=== PATIENT | female | born 1995 | race Caucasian/White ===

== ENCOUNTER 2016-09-05 09:38 | Emergency (ER) | payer BC ==
[2016-09-05] MEDS ORDERED: NS 1,000 ML IV ONE (09:46)
[2016-09-05] MEDS ORDERED: predniSONE 20 MG TAB PO ONE (09:46)
[2016-09-05] MEDS ORDERED: FAMOTIDINE 20 MG/2 ML SDV IVP ONE (09:48)
--- NOTE | 2016-09-05 10:52 | EDPHY ---
H & P Stated Complaint: ? allergic reaction to liquid gels HPI/ROS: Chief complaint: Allergic reaction History of present illness: This is a 20-year-old female who presents to the emergency department concerned she is having allergic reaction. Patient reports she has a history of allergies to medications contained liquid gel caps. She took a liquid gel cap this morning and since then feels like she is developing an allergic reaction. She reports swelling of her face, swelling of her throat and itching. She drove here immediately. She does have epinephrine pens but did not use them. She denies other associated signs or symptoms. Review of systems: A 10 point review of systems was obtained and other than described above is negative - Personal History LMP (Females 10-55): 8-14 Days Ago Current Tetanus/Diphtheria Vaccine: Yes - Medical/Surgical History Hx Asthma: No Hx Chronic Respiratory Disease: No Hx Diabetes: No Hx Cardiac Disease: No Hx Renal Disease: No Hx Cirrhosis: No Hx Alcoholism: No Hx HIV/AIDS: No Hx Splenectomy or Spleen Trauma: No Other PMH: denies - Social History Smoking Status: Never smoked - Physical Exam Exam: General Appearance: Alert, nontoxic. Eyes: Pupils equal and round no injection. ENT: No angioedema. Patient's talk without difficulty. There is no hoarseness , no drooling, no trismus, no stridor. Respiratory: Chest is non tender, lungs are clear to auscultation. Cardiac: regular rate and rhythm Gastrointestinal: Abdomen is soft and non tender, no masses, bowel sounds normal. Musculoskeletal: Neck is supple and non tender. Extremities have full range of motion and are non tender. Skin: Mild edema around the eyes. Constitutional: Initial Vital Signs Temperature (C) 36.7 C 09/05/16 09:39 Heart Rate 94 09/05/16 09:39 Respiratory Rate 16 09/05/16 09:39 Blood Pressure 127/87 H 09/05/16 09:39 O2 Sat (%) 96 09/05/16 09:39 O2 Delivery Mode Room Air Allergies/Adverse Reactions: grapefruit Allergy (Verified 09/05/16 10:00) ibuprofen [From Advil Cold and Sinus] Allergy (Verified 09/05/16 10:00) levofloxacin [From Levaquin] Allergy (Verified 09/05/16 09:39) pseudoephedrine HCl [From Advil Cold and Sinus] Allergy (Verified 09/05/16 10:00 ) "LIQUID GELS" Allergy (Uncoded 09/05/16 10:00) COCONUT Allergy (Uncoded 09/05/16 10:00) Home Medications: Medication Instructions Recorded Junel 1 mg-20 Mcg Tablet 09/05/16 predniSONE 40 mg PO DAILY 4 Days 09/05/16 Medical Decision Making ED Course/Re-evaluation: Patient seen under the supervision of my secondary supervising physician Dr. Steve Aviles. Patient presents to the emergency department concerned she is having an allergic reaction. She is nontoxic. Afebrile and vital signs are stable. She is started on prednisone as well as Benadryl and Pepcid. She is IV hydrated. She is observed in the emergency department for over an hour. She reports resolution of symptoms. She would like to be discharged home. She is discharged home and home care is discussed. She does have epinephrine pens at home. She is asked to follow up with a primary care doctor for recheck. Strict return precautions are given. Patient voiced understanding and agreement with plan. Differential Diagnosis: Included but not limited to allergic reaction, anaphylaxis, contact dermatitis - Data Points Medications Given: Discontinued Medications Diphenhydramine HCl (Benadryl Injection) 25 mg IVP EDNOW ONE Stop: 09/05/16 09:47 Last Admin: 09/05/16 09:55 Dose: 25 mg Famotidine (Pepcid) 20 mg IVP EDNOW ONE Stop: 09/05/16 09:49 Last Admin: 09/05/16 09:55 Dose: 20 mg Sodium Chloride (Ns) 1,000 mls @ 0 mls/hr IV ONCE ONE PRN Reason: Wide Open Stop: 09/05/16 09:47 Last Admin: 09/05/16 09:55 Dose: 1,000 mls Prednisone (Prednisone) 60 mg PO EDNOW ONE Stop: 09/05/16 09:47 Last Admin: 09/05/16 09:55 Dose: 60 mg Departure - Departure Disposition: Home, Routine, Self-Care Clinical Impression: Allergic reaction Qualifiers: Encounter type: initial encounter Qualifier Code: (T78.40XA) Allergy, unspecified, initial encounter Condition: Good Instructions: Anaphylaxis (ED) Additional Instructions: Follow-up with a primary care doctor [facility] for rec[facility] Take prednisone as prescribed until finished Use [id number] Benadryl, 25 mg every 6 hours for the next 2-3 days Use [id number] Pepcid, 20 mg twice a day for the next 2-3 days If symptoms worsen or new symptoms developed use your epinephrine pen and return immediately to the emergency department, you can call 911 if needed Referrals: NONE *PRIMARY CARE P,. [Primary Care Provider] - As per Instructions Rona Quiñonez MD [Medical Doctor] - As per Instructions Prescriptions: predniSONE 40 mg PO DAILY 4 Days
[2016-09-05 10:59] VITALS: BP 128/78; PULSE 74; RESP 14; TEMP 98.4; O2SAT 94
== END 2016-09-05 10:58 | disposition home or self-care (01) ==
DX: R22.0 Localized swelling, mass and lump, head (principal)
CPT/HCPCS: 96374; J1200

== ENCOUNTER 2017-04-30 13:56 | Emergency (ER) | payer BC ==
[2017-04-30 14:03] VITALS: BP 114/68; PULSE 72; RESP 18; TEMP 98.8; O2SAT 98
--- NOTE | 2017-04-30 14:46 | EDPHY ---
H & P Time Seen by Provider: 04/30/17 14:18 HPI/ROS: CHIEF COMPLAINT: Right thumb injury HISTORY OF PRESENT ILLNESS: 21-year-old female presents to the emergency department with injury to the right thumb. 2 days ago the patient was using a slicer and was slicing eggplant and accidentally cut her thumb. She presents now to the emergency department 2 days later for wound evaluation. Her tetanus shot is current. She is right-hand dominant. ROS: Denies numbness or tingling in her fingers, retained foreign body. Past Medical/Surgical History: Negative Social History: [employer] student Smoking Status: Never smoked Physical Exam: On examination the patient has a healing flap laceration to the distal, palmar aspect of her right thumb. It extends from about PIP joint up to the distal aspect of her thumb. She has full range of motion of her fingers. No palpable bony tenderness. No active bleeding noted. No signs of infection. Tender to palpate. The other fingers do not appear injured. Constitutional: Initial Vital Signs Temperature (C) 37.1 C 04/30/17 14:01 Heart Rate 72 04/30/17 14:01 Respiratory Rate 18 04/30/17 14:01 Blood Pressure 114/68 04/30/17 14:01 O2 Sat (%) 98 04/30/17 14:01 O2 Delivery Mode Room Air Allergies/Adverse Reactions: grapefruit Allergy (Verified 04/30/17 14:00) ibuprofen [From Advil Cold and Sinus] Allergy (Verified 04/30/17 14:00) levofloxacin [From Levaquin] Allergy (Verified 04/30/17 14:00) pseudoephedrine HCl [From Advil Cold and Sinus] Allergy (Verified 04/30/17 14:00 ) "LIQUID GELS" Allergy (Uncoded 09/05/16 10:00) COCONUT Allergy (Uncoded 09/05/16 10:00) Home Medications: Medication Instructions Recorded Junel 1 mg-20 Mcg Tablet 09/05/16 MDM/Departure - [facility] ED Course/Re-evaluation: Patient's wound is 48 hours old. Is already healing. There is no signs of infection. I explained why sutures are not indicated now. Patient was given wound care precautions. - Depart Disposition: Home, Routine, Self-Care Clinical Impression: Right thumb healing laceration Condition: Good Instructions: Acute Wounds (ED) Additional Instructions: Return if you notice any signs or symptoms of infection such as redness, swelling, increased pain, fever, purulent drainage. Referrals: ROLO PATEL [Other] - As per Instructions
== END 2017-04-30 14:54 | disposition home or self-care (01) ==
DX: S61.011A Laceration without foreign body of right thumb without damage to nail, initial encounter (principal); W27.8XXA Contact with other nonpowered hand tool, initial encounter

== ENCOUNTER 2018-08-22 11:20 | Emergency (ER) | payer BC ==
--- NOTE | 2018-08-22 12:31 | EDPHY ---
H & P Stated Complaint: hit head 08/19 Time Seen by Provider: 08/22/18 11:35 HPI/ROS: Chief complaint: Head injury History of present illness: This is a 22-year-old female who presents to the emergency department for head injury. She states 3 days ago she was snowboarding when she caught an edge and fell down striking the back of her head against the ground. She was helmeted. There was no loss of consciousness. Initially she felt well. However over the last 1-2 days she has developed a fogginess, sensitivity light and sound, fatigue and malaise. She denies headaches. She denies paresthesias. She denies weakness or paralysis. In addition she is complaining of right lock pain. She has had lock pain for number of weeks. She is concerned she has a fracture she has had a stress fracture in the left leg before. This is not related to the snowboarding injury. No report of open wounds. No report of abnormal coolness or paresthesias in the leg. No report of redness or swelling. - Medical/Surgical History Hx Asthma: No Hx Chronic Respiratory Disease: No Hx Diabetes: No Hx Cardiac Disease: No Hx Renal Disease: No Hx Cirrhosis: No Hx Alcoholism: No Hx HIV/AIDS: No Hx Splenectomy or Spleen Trauma: No Other PMH: denies - Social History Smoking Status: Never smoked - Physical Exam Exam: General Appearance: Alert, nontoxic Eyes: PERRLA. EOM intact. ENT: No hemotympanum, no evans sign, no raccoon eyes Respiratory: Lungs clear to auscultation bilaterally Cardiovascular: Regular rate and rhythm. Radial, DP and PT pulses 2+ bilaterally. Neurological: Alert and oriented x4. Cranial nerves 2-12 grossly intact. Strength and sensation intact and symmetrical. No meningismus. Skin: Patient has a small tender lesion to the occipital scalp. No open wounds. Musculoskeletal: Mild tenderness over the lesion described above. The rest of the head is nontender. No crepitus or bony deformity. The spine is nontender to palpation along its entire length, there is no crepitus, bony deformity or step-off. There is tenderness over the right mid lock. No crepitus or bony deformity. There is no associated erythema or edema of the leg. No asymmetry of the leg compared to the other leg. Constitutional: Initial Vital Signs Temperature (C) 36.9 C 08/22/18 11:32 Heart Rate 73 08/22/18 11:32 Respiratory Rate 16 08/22/18 11:32 Blood Pressure 120/75 08/22/18 11:32 O2 Sat (%) 100 08/22/18 11:32 O2 Delivery Mode Room Air Allergies/Adverse Reactions: grapefruit Allergy (Verified 08/22/18 11:31) ibuprofen [From Advil Cold and Sinus] Allergy (Verified 08/22/18 11:31) levofloxacin [From Levaquin] Allergy (Verified 08/22/18 11:31) pseudoephedrine HCl [From Advil Cold and Sinus] Allergy (Verified 08/22/18 11:31 ) tree nut Allergy (Verified 08/22/18 11:31) "LIQUID GELS" Allergy (Uncoded 08/22/18 11:31) COCONUT Allergy (Uncoded 08/22/18 11:31) Home Medications: Medication Instructions Recorded Junel 1 mg-20 Mcg Tablet 09/05/16 Medical Decision Making - Diagnostics Imaging Results: Imaging Impressions Tibia/Fibula X-Ray 08/22/18 11:52 Impression: There is no acute osseous abnormality identified. Imaging: I viewed and interpreted images myself ED Course/Re-evaluation: Patient seen under the supervision of my secondary supervising physician Dr. Steve Aviles. Patient presents primarily for a head injury. She is nontoxic. She is neurovascularly intact. I believe she has suffered a concussion. My suspicion for more serious injury is low. I do not believe imaging studies warranted at this time. However I have offered a CT and she has declined. I believe this is likely post concussive syndrome. X-ray of the leg is negative. I have asked her to follow up with student health [facility] or our concussion Clinic. I have also asked her follow up with Orthopedics for her leg. Referral information is given. Home care is discussed. Return precautions are given. The patient voiced understanding and agreement with plan. Differential Diagnosis: Included but not limited to minor head injury, concussion, post concussive syndrome, skull fracture, intracranial bleed as well as contusion of the leg, lock splints, fracture including occult fracture Departure - Departure Disposition: Home, Routine, Self-Care Clinical Impression: Post concussive syndrome Concussion Qualifiers: Encounter type: initial encounter Loss of consciousness presence/duration: without LOC Qualified Code(s): S06.0X0A - Concussion without loss of consciousness, initial encounter Leg pain Qualifiers: Laterality: right Qualified Code(s): M79.604 - Pain in right leg Condition: Good Instructions: Concussion (ED), Post Concussion Syndrome (ED), Leg Pain (ED) Additional Instructions: Follow-up with the concussion Clinic at [facility] or our concussion Clinic Follow-up with orthopedics for recheck of your leg pain If symptoms worsen or new symptoms develop return to the emergency department for recheck Referrals: NONE *PRIMARY CARE P,. [Primary Care Provider] - As per Instructions [facility],. [Clinic] - As per Instructions Madan Beckford MD [Medical Doctor] - As per Instructions Stand Alone Forms: School Excuse
[2018-08-22 13:10] VITALS: BP 110/67
== END 2018-08-22 13:10 | disposition home or self-care (01) ==
LOC: SUPCPDRO 11:20
DX: S06.0X0A Concussion without loss of consciousness, initial encounter (principal); M79.661 Pain in right lower leg; V00.311A Fall from snowboard, initial encounter; Y93.23 Activity, snow (alpine) (downhill) skiing, snowboarding, sledding, tobogganing and snow tubing; Y92.828 Other wilderness area as the place of occurrence of the external cause; Y99.8 Other external cause status